=== PATIENT | female | born 1940 | race Caucasian/White ===

== ENCOUNTER 2019-02-12 11:05 | Emergency (ER) | payer OTHER ==
[~2019-02-12] VITALS: Ht 154.9 cm; Wt 67.6 kg
[~2019-02-12 11:05] MED LIST: FURO-570 PO; LISI30TA6 PO; METO-251 PO; OMEP40EC24 PO
[2019-02-12 11:06] VITALS: BP 113/50
--- NOTE | 2019-02-12 11:18 | NUR ---
Patient ambulated to bed 4 with family. RN evaluating patient at bedside.
--- NOTE | 2019-02-12 11:24 | NUR ---
78/F BIB SON C/O BRUISE TO RIGHT FOREARM, RIGHT HAND & SWELLING TO RIGHT WRIST WITH PAIN S/P FALL X 2 DAYS. STATES DID HIT HEAD BUT DENIES HEAD PAIN AND DENIES LOC. GCS15. STATES PAIN 8/10 MOSTLY CONCENTRATED TO RT WRIST AND HAND. PT IS AMBULATORY WITH CANE. STATES LIMITED ROM TO RT WRIST JOINT 2/2 PAIN. SWELLING NOTED TO RT WRIST AND HAND. CONTUSION TO RT HAND PALMAR SURFACE AND RT ANTERIOR FOREARM. VSS; BEDRAILS UP X1. ERMD TO EVALUATE PT. MED HX:HEART ATTACK , 4 STENTS, HTN,COPD, LEFT EYE BLIND Addendum: 02/12/19 at 1131 by CHEKO DENIES NUMBNESS, TINGLING. RADIAL PULSES 2+ BILATERALLY.
--- NOTE | 2019-02-12 11:39 | NUR ---
Dr. Sarmiento is evaluating the patient at bedside.
[2019-02-12] MEDS ORDERED: KETOROLAC 30 MG/ML VIAL IM ONE (11:55)
--- NOTE | 2019-02-12 12:26 | NUR ---
XRAY AT BEDSIDE.
--- NOTE | 2019-02-12 13:02 | NUR ---
Short arm volar splint placed on PT's right arm, fitted also with a sling for support.
--- NOTE | 2019-02-12 13:02 | NUR ---
VOLAR SPLINT APPLIED BY [facility]. [facility] INTACT PRIOR TO SPLINT. [facility] INTACT POST SPLINT.
[2019-02-12 13:06] VITALS: BP 115/74
== END 2019-02-12 13:02 | disposition home or self-care (01) ==
LOC: MED 11:05
DX: S52.591A Other fractures of lower end of right radius, initial encounter for closed fracture (principal); S52.511A Displaced fracture of right radial styloid process, initial encounter for closed fracture; I10 Essential (primary) hypertension; I25.2 Old myocardial infarction; J44.9 Chronic obstructive pulmonary disease, unspecified; Z86.73 Personal history of transient ischemic attack (TIA), and cerebral infarction without residual deficits; Z95.1 Presence of aortocoronary bypass graft; Z79.899 Other long term (current) drug therapy; W19.XXXA Unspecified fall, initial encounter; Y93.89 Activity, other specified; Y92.89 Other specified places as the place of occurrence of the external cause; Y99.8 Other external cause status
CPT/HCPCS: 29125; 73090; 73130; 96372; 99283; J1885

== ENCOUNTER 2021-07-23 11:55 | Emergency (ER) | payer OTHER ==
[~2021-07-23] VITALS: Ht 157.5 cm; Wt 63.5 kg
[2021-07-23 12:19] VITALS: BP 120/50
--- NOTE | 2021-07-23 12:24 | NUR ---
Patient wheelchair assisted to bed 1.
[2021-07-23] MEDS ORDERED: ONDANSETRON 4 MG/2 ML VIAL IVP ONE (12:50)
[2021-07-23] MEDS ORDERED: NACL 0.9% 1,000 ML IV ONE (12:50)
[2021-07-23] MEDS ORDERED: ASPIRIN 325 MG TAB PO ONE (12:55)
[2021-07-23] MEDS ORDERED: NITROGLYCERIN 0.4 MG TAB SL ONE ×2 (12:59→13:00)
[2021-07-23] MEDS ORDERED: MORPHINE SULFATE 4 MG/ML SYR IVP ONE (13:00)
[2021-07-23 13:05] LABS: BASOPHILS % (AUTO) 0.2 % (0.0-2.0); EOSINOPHILS % (AUTO) 0.2 % (0.0-4.0); HEMATOCRIT 39.2 % (36-48); HEMOGLOBIN 12.9 g/dL (12.0-16.0); LYMPHOCYTES # (AUTO) 1.3 K/uL (2.5-16.5); LYMPHOCYTES % (AUTO) 13.1 % (20.5-51.1); MEAN CORPUSCULAR HEMOGLOBIN 32 pg (27-31); MEAN CORPUSCULAR HGB CONC 33 g/dL (33-37); MEAN CORPUSCULAR VOLUME 97.9 fL (80-94); MONOCYTES # (AUTO) 0.7 K/uL (0.8-1.0); MONOCYTES % (AUTO) 7.1 % (1.7-9.3); NEUTROPHILS # (AUTO) 8.1 K/uL (1.8-7.7); NEUTROPHILS % (AUTO) 79.4 % (42.2-75.2); PLATELET COUNT (AUTO) 241 K/uL (140-450); WHITE BLOOD COUNT (AUTO) 10.2 K/uL (4.8-10.8)
--- NOTE | 2021-07-23 13:20 | NUR ---
C/O N/V, WEAKNESS, LOSS OF APPITITE X 3 DAYS AND C/O JAW, ARMS PAIN X 1 YEAR. SON STATED PT TOOK ALOT OF PAIN MEDICINE.OVERDOSE PAIN MEDICINE FOR PAIN. PT STATED SHE TOOK PAIN MED 2 TABS TODAY. PMH: HTN, HEART ATTACK , 4 STENTS IN 2009
[2021-07-23 13:28] LABS: ACETAMINOPHEN 4.1 ug/ml (10-30); ALBUMIN 4.5 g/dL (3.4-5.0); ANION GAP 22.8 (8-16); ASPARTATE AMINOTRANSFERASE 27 U/L (15-37); CARBON DIOXIDE 14.1 mmol/L (21-32); CHLORIDE 106 mmol/L (98-107); CREATININE 1.5 mg/dL (0.6-1.3); GLUCOSE 79 mg/dL (74-106); POTASSIUM 4.9 mmol/L (3.5-5.1); SODIUM SERUM 138 mmol/L (136-145); TOTAL BILIRUBIN 0.2 mg/dL (0.0-1.0); UREA NITROGEN, BLOOD 44 mg/dL (7-18)
--- NOTE | 2021-07-23 13:30 | NUR ---
[facility] TRANSPORATION AT BEDSIDE
[2021-07-23 13:31] LABS: SALICYLATE 3.3 mg/dL (2.8-20.0)
--- NOTE | 2021-07-23 13:40 | NUR ---
Patient to be transferred to [facility]. Is being transferred due to ACUTE STEMI. Receiving facility has accepting physician and available space. ER physician has signed transfer form. Patient or responsible alliance party has agreed to transfer and signed form. Patient belongings inventoried and will be sent with patient. Copy of nursing notes, lab reports, EKG, Physicians Orders and X-rays to be sent with patient. Report called to BIGG MARSH at receiving facility. [facility] [place] ambulance service has been called for transfer. ETA is 10MINUTES.
[2021-07-23 13:44] VITALS: BP 120/81
== END 2021-07-23 13:40 | disposition short-term general hospital (02) ==
LOC: MED 11:55
DX: I21.19 ST elevation (STEMI) myocardial infarction involving other coronary artery of inferior wall (principal); I10 Essential (primary) hypertension; E78.5 Hyperlipidemia, unspecified; I25.10 Atherosclerotic heart disease of native coronary artery without angina pectoris; F17.210 Nicotine dependence, cigarettes, uncomplicated; Z86.73 Personal history of transient ischemic attack (TIA), and cerebral infarction without residual deficits; Z90.710 Acquired absence of both cervix and uterus; Z95.1 Presence of aortocoronary bypass graft; Z79.899 Other long term (current) drug therapy
CPT/HCPCS: 36415; 71045; 80053; 83605; 83880; 84484; 85025; 87040; 93005; 96374; 96375; 99291; G0480; G0482; J1644; J2270; J2405; J7030